=== PATIENT | male | born 1990 ===

== ENCOUNTER 2016-06-21 00:24 | Emergency (ER) | payer SELFPAY ==
[2016-06-21 00:37] VITALS: RESP 18; O2SAT 100
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
[2016-06-21 05:33] VITALS: BP 125/63; PULSE 69; TEMP 98
== END 2016-06-21 03:55 | disposition home or self-care (01) ==
LOC: H.ER 00:24
DX: S00.81XA Abrasion of other part of head, initial encounter (principal); Y04.0XXA Assault by unarmed brawl or fight, initial encounter; L30.9 Dermatitis, unspecified